=== PATIENT | female | born 1980 | race Caucasian/White ===

== ENCOUNTER 2024-11-23 16:10 | Emergency (ER) | payer MEDICAID, SELFPAY ==
[2024-11-23 16:12] VITALS: BMI 25.4
[2024-11-23 16:23] VITALS: BP 144/97; PULSE 100; RESP 17; TEMP 36.9; O2SAT 97
--- NOTE | 2024-11-23 16:41 | XR_ITS ---
Examination: PA lateral chest 2 views TECHNIQUE: Upright PA and lateral chest 2 views Date and time: November 23, 2024 1659 hours INDICATIONS: Inhaled bleach and other chemicals today with shortness of breath chest pain and wheezing FINDINGS: Normal heart size No pneumonia or pulmonary edema The osseous structures are intact IMPRESSION: No active disease
--- NOTE | 2024-11-23 16:42 | PD.EDRME ---
Rapid Medical Screening Exam [facility] Arrival date/time: 11/23/24 16:10 44-year-old female with no known medical history presents to the emergency room with a chief complaint of coughing, and wheezing that began this morning at 10 AM. Patient states she was cleaning the restroom and using Clorox and when she turned on the hot water she felt the fumes hit her face and she began to cough. I have greeted and performed a focused initial assessment of this patient. A comprehensive ED assessment and evaluation of the patient, analysis of all test results, and completion of the medical decision making process will be conducted by additional ED providers. Chief Complaint: Flu Like Symptoms Time Seen by Provider: 11/23/24 16:16 Vital signs: Vital Signs Temperature 98.4 F 11/23/24 16:23 Pulse Rate 100 11/23/24 16:23 Respiratory Rate 17 11/23/24 16:23 Blood Pressure 144/97 H 11/23/24 16:23 Pulse Oximetry (%) 97 11/23/24 16:23 Oxygen Delivery Method Room Air 11/23/24 16:23 Vital signs reviewed by provider: Yes
--- NOTE | 2024-11-23 16:50 | PC.NURSE ---
POISON CONTROL CONTACTED AT THIS TIME, RAYSHAWN LUCIANO MADE OF AWARE OF RECOMMENDATIONS. POISON CONTROL RECOMMENDS SUPPORTIVE CARE, OXYGEN IF PATIENT HAS LOW OXYGEN SATURATION, BREATHING TREATMENT, AND CHEST X-RAY IF NEEDED.
[2024-11-23] MEDS: ALBUTEROL/IPRATROPIUM (Duoneb) RT SOL 3 ML NEBU INH (17:15)
[2024-11-23 17:17] VITALS: PULSE 91; RESP 18; O2SAT 99
--- NOTE | 2024-11-23 17:58 | EDNOTE_ITS ---
Upper Respiratory Inf. RME/HPI General Chief Complaint: Flu Like Symptoms Stated Complaint: COUGH SINCE CLEANING RESTROOM Time Seen by Provider: 11/23/24 16:16 Source: patient Arrival date/time: 11/23/24 16:10 44-year-old female with no known medical history presents to the emergency room with a chief complaint of coughing, and wheezing that began this morning at 10 AM. Patient states she was cleaning the restroom and using Clorox and when she turned on the hot water she felt the fumes hit her face and she began to cough. Mode of arrival: ambulatory Limitations: no limitations RME / HPI RME / HPI Narrative: 11/23/24 16:10 44-year-old female with no known medical history presents to the emergency room with a chief complaint of coughing, and wheezing that began this morning at 10 AM. Patient states she was cleaning the restroom and using Clorox and when she turned on the hot water she felt the fumes hit her face and she began to cough. I have greeted and performed a focused initial assessment of this patient. A comprehensive ED assessment and evaluation of the patient, analysis of all test results, and completion of the medical decision making process will be conducted by additional ED providers. Related Data Allergies Allergy/AdvReac Type Severity Reaction Status Date / Time No Known Allergies Allergy Verified 11/23/24 16:11 Review of Systems Review of Systems Systems Reviewed: All systems reviewed, normal except as documented Constitutional Constitutional: Reports system reviewed and no additional complaints, except as documented, Denies fatigue, Denies fever(s), Denies headache(s) and Denies weakness Eyes Eyes: Reports system reviewed and no additional complaints, except as documented, Denies blurry vision and Denies change in vision ENT Ears, Nose, Mouth, and Throat: Reports system reviewed and no additional complaints, except as documented, Denies otalgia, Denies headache(s), Denies nasal congestion, Denies throat swelling and Denies vertigo Cardiovascular Cardiovascular: Reports system reviewed and no additional complaints, except as documented, Denies chest pain, Denies dyspnea and Denies dyspnea on exertion Respiratory Respiratory: Reports system reviewed and no additional complaints, except as documented, Reports chest congestion, Reports cough, Denies dyspnea, Denies dyspnea on exertion and Reports wheezing Gastrointestinal Gastrointestinal: Reports system reviewed and no additional complaints, except as documented, Denies abdominal pain, Denies cramping, Denies nausea and Denies vomiting Genitourinary Genitourinary: Reports system reviewed and no additional complaints, except as documented Musculoskeletal Musculoskeletal: Reports system reviewed and no additional complaints, except as documented and Denies back pain Integumentary/Breasts Skin/Breast: Reports system reviewed and no additional complaints, except as documented and Denies wounds Neurologic Neurologic: Reports system reviewed and no additional complaints, except as documented, Denies confusion, Denies headache(s), Denies lack of coordination, Denies vertigo and Denies weakness Psychiatric Psychiatric: Reports system reviewed and no additional complaints, except as documented, Denies anxiety, Denies confusion, Denies depression, Denies paranoia, Denies suicidal ideation and Denies tactile hallucinations Endocrine Endocrine: Reports system reviewed and no additional complaints, except as documented and Denies fatigue Hematologic/Lymphatic Hematologic/Lymphatic: Reports system reviewed and no additional complaints, except as documented and Denies lymphadenopathy Allergic/Immunologic Allergic/Immunologic: Reports system reviewed and no additional complaints, except as documented, Denies throat swelling, Denies urticaria and Reports wheezing Past Medical History Social History SMOKING STATUS: Current every day smoker ED Exam General Limitations: Present no limitations General appearance: Present alert and in no apparent distress Head Head exam: Present atraumatic Eye Eye exam: Present normal appearance, PERRL and EOMI ENT ENT exam: Present normal exam, normal oropharynx and mucous membranes moist Neck Neck exam: Present normal inspection, full ROM and trachea midline Chest Chest inspection: Present normal inspection and symmetric chest wall rise Respiratory Respiratory exam: Present normal lung sounds bilaterally and wheezes; Absent respiratory distress, stridor, accessory muscle use or prolonged expiratory phase Cardiovascular Cardiovascular exam: Present regular rate, normal rhythm and normal heart sounds; Absent bradycardia, tachycardia or irregular rhythm Abdominal Exam Abdominal exam: Present soft and normal bowel sounds Extremities Exam Extremities exam: Present normal inspection and full ROM Back Exam Back exam: Present normal inspection and full ROM Neurological Exam Neurological exam: Present alert, oriented X3 and CN II-XII intact Psychiatric Psychiatric exam: Present normal affect and normal mood Skin Skin exam: Present warm, dry, intact and normal color Course Quality Measures none Orders Category Date Time Status XR chest 2V Stat Exams 11/23/24 16:41 Completed Albuterol/Ipratr Rt Navya [Duoneb Rt Navya] Med 11/23/24 16:51 Discontinued 3 ml INH X1 ONE Vital Signs Vital signs: Vital Signs Temperature 98.4 F 11/23/24 16:23 Pulse Rate 100 11/23/24 16:23 Respiratory Rate 17 11/23/24 16:23 Blood Pressure 144/97 H 11/23/24 16:23 Pulse Oximetry (%) 97 11/23/24 16:23 Oxygen Delivery Method Room Air 11/23/24 16:23 Upper Respiratory Infection MDM Narrative MDM Narrative:: 44-year-old female with no known medical history presents to the emergency room with a chief complaint of coughing, and wheezing that began this morning at 10 AM. Patient states she was cleaning the restroom and using Clorox and when she turned on the hot water she felt the fumes hit her face and she began to cough. Patient is hemodynamically stable and in no apparent distress. O2 saturation is 97% on room air. The patient is not tachypneic not tachycardic and afebrile Physical examination shows some wheezing to the upper lobes. Poison control was called and the recommendations were to do a chest x-ray and a breathing treatment. After the breathing treatment the patient states she feels a lot better. Chest x-ray was negative for any pneumonia Patient was discharged and educated to follow-up with primary care provider in the next 24 to 48 hours and return to the emergency room for any evidence of worsening signs or symptoms Patient data External records reviewed:: [facility] previous records Clinical information provided by:: patient Social determinants that could affect healthcare access:: none Patient has the following chronic illnesses:: No chronic illness How is presenting disease/condition affected by chronic disease/condition?: no chronic disease Evaluation data The following diagnostics were reviewed and interpreted by me:: lab results and radiology exam(s) Lab and/or radiology exams considered but not ordered:: Labs and radiology exams considered and ordered Interpretation Summary: Chest [id number]: Normal heart size No pneumonia or pulmonary edema The osseous structures are intact IMPRESSION: No active disease Medications / Prescriptions Medications or Prescriptions considered but not ordered:: Medication given Medication administrations:: Medication Administration History Discontinued Medications Albuterol/Ipratropium (Albuterol/Ipratropium (Duoneb) Rt Navya 3 Ml Nebu) 3 ml INH X1 ONE Stop: 11/23/24 16:52 Last Admin: 11/23/24 17:15 Dose: 3 ml Documented By: LO Medication given Consultations Consultation(s) initiated? (list below): No Diagnosis Upper Respiratory Differential Diagnosis: upper respiratory infection, viral infection, bronchitis, influenza and other Most likely diagnosis given after review of the tests above:: Upper respiratory infection Admission Indicated Admission indicated?: not indicated Admission Request Was there a request for admission?: No Disposition Plan Disposition Plan: Discharge Discharge Attestation Discharge Attestation: The patient and all family members were given an opportunity to ask questions and understood the discharge instructions. Discharge instructions specifically effects, indications for sooner follow up or return to the emergency department, and the expected course of current diagnosis. Patient condition: Stable Discharge Plan Plan Patient Disposition: HOME (Self Care) Discharge Disposition comment: Stable Problem List Clinical Impression: Upper respiratory infection Patient/Caregiver Discharge Instructions Education Materials: ED URI, Viral, No Abx (Adult) Additional Instructions: Please follow-up with your primary care provider in the next 24 to 48 hours For any evidence of worsening signs or symptoms return to the emergency room immediately Print Language: Yoruba Stand Alone Forms: Iliana Award Info., Patient Portal Info Letter PA/RAYSHAWN Supervising Physician JIMY/RAYSHAWN Supervising Physician: Dr. Prater
== END 2024-11-23 18:20 | disposition home or self-care (01) ==
LOC: SERX 18:14
PROVIDERS: Emergency Provider Emergency Medicine; PCP Physician Assistant Medical
DX: J06.9 Acute upper respiratory infection, unspecified (principal); F17.210 Nicotine dependence, cigarettes, uncomplicated
CPT/HCPCS: 71046; 94640; 99283; A9270